=== PATIENT | male | born 1950 | race Caucasian/White ===

== ENCOUNTER → 2016-06-09 | Outpatient (CLI) | payer MEDICARE, BC ==
[~2016-06-09] MED LIST: OMNIPAQUE 350 MG/ML, 50 ML BOTTLE ONE
== END | disposition home or self-care (01) ==
LOC: RAD 10:44
PROVIDERS: ATTEND Specialist
DX: I66.02 Occlusion and stenosis of left middle cerebral artery (principal); I63.8 Other cerebral infarction; R49.9 Unspecified voice and resonance disorder; I63.10 Cerebral infarction due to embolism of unspecified precerebral artery
CPT/HCPCS: 0042T; 36415; 82565; Q9967